=== PATIENT | female | born 1985 | race Caucasian/White ===

== ENCOUNTER 2020-09-18 21:59 | Emergency (ER) | payer SELFPAY ==
--- OUTSIDE RECORDS SUMMARY | 2020-09-18 22:00 | XMS REPORT | Continuity of Care Document ---
:1985 Author Organization [facility] t Address [address] [place] [address] Care Team Providers Name Role Phone Doctor Unassigned, Name Attending Clinician Unavailable Problems This patient has no known problems. Allergies, Adverse Reactions, Alerts This patient has no known allergies or adverse reactions. Medications This patient has no known medications. Procedures This patient has no known procedures. Encounters Start End Encounter Admission Attending Care Care Encounter Source Date/Time Date/Time Type Type Clinicians Facility Department ID 2019-02-02 2019-02-02 Orders Doctor CHARLES [id number] 00:00:00 00:00:00 Only UnassignedJANE [id number] [employer] [facility] [id number] Results This patient has no known results.
[2020-09-19 00:30] LABS: SARS-COV-2 RT PCR POSITIVE (NEGATIVE)
--- NOTE | 2020-09-19 02:19 | EDPHYS ---
Physician Documentation [facility] Name: Gill Batista Age: 35 yrs Sex: Female : 1985 Arrival Date: 09/18/2020 Time: 22:00 Bed 5 Private MD: SENIA Physician Terrell Pyle HPI: 09/19 02:11 This 35 yrs old Female presents to ER via Ambulatory with complaints of juan pablo Diarrhea, Breathing Difficulty. 02:11 The patient presents to the emergency department with diarrhea. Onset: The juan pablo symptoms/episode began/occurred 3 day(s) ago. Possible causes: unknown. The symptoms are aggravated by nothing. The symptoms are alleviated by nothing. Associated signs and symptoms: Pertinent positives: diarrhea, fever, cough and congestion. Severity of symptoms: At their worst the symptoms were mild in the emergency department the symptoms are unchanged. The patient has not experienced similar symptoms in the past. 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 - Social history:: Smoking status: Patient denies any tobacco usage or history of. ROS: 09/19 02:12 Constitutional: Negative for fever, chills, and weight loss, Eyes: Negative for injury, juan pablo pain, redness, and discharge, ENT: Negative for injury, pain, and discharge, Neck: Negative for injury, pain, and swelling, Cardiovascular: Negative for chest pain, palpitations, and edema, Abdomen/GI: Negative for abdominal pain, nausea, vomiting, diarrhea, and constipation, Back: Negative for injury and pain, : Negative for injury, bleeding, discharge, and swelling, MS/Extremity: Negative for injury and deformity, Skin: Negative for injury, rash, and discoloration, Neuro: Negative for headache, weakness, numbness, tingling, and seizure, Psych: Negative for depression, anxiety, suicide ideation, homicidal ideation, and hallucinations, Allergy/Immunology: Negative for hives, rash, and allergies, Endocrine: Negative for neck swelling, polydipsia, polyuria, polyphagia, and marked weight changes, Hematologic/Lymphatic: Negative for swollen nodes, abnormal bleeding, and unusual bruising. Respiratory: Positive for cough, shortness of breath, on exertion. MS/extremity: Negative for acute changes. Exam: 02:12 Constitutional: This is a well developed, well nourished patient who is awake, alert, juan pablo and in no acute distress. Head/Face: Normocephalic, atraumatic. Eyes: Pupils equal round and reactive to light, extra-ocular motions intact. Lids and lashes normal. Conjunctiva and sclera are non-icteric and not injected. Cornea within normal limits. Periorbital areas with no swelling, redness, or edema. ENT: Nares patent. No nasal discharge, no septal abnormalities noted. Tympanic membranes are normal and external auditory canals are clear. Oropharynx with no redness, swelling, or masses, exudates, or evidence of obstruction, uvula midline. Mucous membranes moist. Neck: Trachea midline, no thyromegaly or masses palpated, and no cervical lymphadenopathy. Supple, full range of motion without nuchal rigidity, or vertebral point tenderness. No Meningismus. Chest/axilla: Normal chest wall appearance and motion. Nontender with no deformity. No lesions are appreciated. Cardiovascular: Regular rate and rhythm with a normal S1 and S2. No gallops, murmurs, or rubs. Normal PMI, no JVD. No pulse deficits. Abdomen/GI: Soft, non-tender, with normal bowel sounds. No distension or tympany. No guarding or rebound. No evidence of tenderness throughout. Back: No spinal tenderness. No costovertebral tenderness. Full range of motion. Female : Normal external genitalia. Skin: Warm, dry with normal turgor. Normal color with no rashes, no lesions, and no evidence of cellulitis. MS/ Extremity: Pulses equal, no cyanosis. Neurovascular intact. Full, normal range of motion. Neuro: Awake and alert, GCS 15, oriented to person, place, time, and situation. Cranial nerves II-XII grossly intact. Motor strength 5/5 in all extremities. Sensory grossly intact. Cerebellar exam normal. Normal gait. 02:12 Respiratory: mild respiratory distress is noted, Respirations: normal, Breath sounds: are clear throughout, Respiratory rate: 20 Vital Signs: 09/18 22:55 BP 106 / 71; Pulse 81; Resp 20; Temp 97.9(O); Pulse Ox 99% on R/A; Weight 95.25 kg (R); lp1 Height 5 ft. 2 in. (157.48 cm); 22:55 Body Mass Index 38.41 (95.25 kg, 157.48 cm) lp1 MDM: 09/19 02:07 Patient medically screened. juan pablo 02:14 Differential diagnosis: Nonspecific abd pain, gastritis. Differential Diagnosis: juan pablo Bronchitis Influenza Upper Respiratory Infection Allergic Rhinitis Asthma Exacerbation Pneumonia. Data reviewed: vital signs, nurses notes, lab test result(s), radiologic studies, plain films. Data interpreted: network control operator: rate is 81 beats/min, rhythm is regular, Pulse oximetry: on room air is 99 %. Test interpretation: by ED physician or midlevel provider: ECG, plain radiologic studies. Counseling: I had a detailed discussion with the patient and/or guardian regarding: the historical points, exam findings, and any diagnostic results supporting the discharge/admit diagnosis, lab results, radiology results, the need for outpatient follow up, for definitive care, a family practitioner, a handy worker. 09/18 22:59 Order name: Strep; Complete Time: 02:07 lp1 09/19 00:04 Order name: Throat Culture EDCT 09/19 00:30 Order name: COVID-19/FLU A+B; Complete Time: 02:07 [facility] 09/19 00:30 Order name: XRAY CXR (1 view) lp1 Administered Medications: 02:50 Drug: Decadron 10 mg Route: IM; Site: left deltoid; jb4 03:20 Follow up: Response: No adverse reaction jb4 02:50 Drug: Aspirin Chewable Tablet 324 mg Route: PO; jb4 03:20 Follow up: Response: No adverse reaction jb4 02:50 Drug: Pepcid 40 mg Route: PO; jb4 03:20 Follow up: Response: No adverse reaction jb4 02:50 Drug: Zithromax 500 mg Route: PO; jb4 03:20 Follow up: Response: No adverse reaction jb4 02:50 Drug: Albuterol HFA Inhaler 4 puffs Route: Inhalation; jb4 03:20 Follow up: Response: No adverse reaction jb4 Disposition: 09/19/20 02:18 Discharged to Home. Impression: Cough, SARS-associated coronavirus as the cause of diseases classified elsewhere - covid 19, Diarrhea, unspecified. - Condition is Stable. - Discharge Instructions: Diarrhea, Adult, Cool Mist Vaporizer, Diarrhea, Adult, Uqhl-yz-[id number], Cough, Adult, Vrur-wk-Sgmv, Aspirin and Your Heart, Cough, Adult, COVID-19. - Prescriptions for ivermectin 3 mg Oral tablet - take 4 tablet by ORAL route once daily x1 dose day 1 and day #3; 8 tablet. Pepcid 20 mg Oral Tablet - take 1 tablet by ORAL route every 12 hours for 10 days; 20 tablet. Albuterol Sulfate 90 mcg/actuation Inhalation - inhale 2 puff by INHALATION route every 4-6 hours; 1 Inhaler. Zithromax 500 mg Oral Tablet - take 1 tablet by ORAL route once daily for 4 days; 4 tablet. dexamethasone 2 mg Oral tablet - take 1 tablet by ORAL route 3 times per day; 15 tablet. - Medication Reconciliation Form, Thank You Letter, Antibiotic Education, Prescription Opioid Use form. - Follow up: Terrell Pyle MD; When: 2 - 3 days; Reason: Recheck today's complaints, Continuance of care, Re-evaluation by your physician. Follow up: Private Physician; When: 2 - 3 days; Reason: Recheck today's complaints, Continuance of care, Re-evaluation by your physician. Follow up: Pato Lee MD; When: 2 - 3 days; Reason: Recheck today's complaints, Re-evaluation by your physician. - Problem is new. - Symptoms have improved. Signatures: Dispatcher [employer] [facility] Terrell Pyle MD MD cha Pena, Laura, RN RN lp1 Dread Sofia RN RN jb4 Corrections: (The following items were deleted from the chart) 09/18 23:29 23:00 Influenza Screen (A ordered. [facility] 23: 23:00 Influenza Screen (A \T\ B)+BA.LAB.BRZ ordered. [facility] 09/19 03:30 02:18 09/19/2020 02:18 Discharged to Home. Impression: Cough; SARS-associated lp1 coronavirus as the cause of diseases classified elsewhere - covid 19; Diarrhea, unspecified. Condition is Stable. Forms are Medication Reconciliation Form, Thank You Letter, Antibiotic Education, Prescription Opioid Use. Follow up: Private Physician; When: 2 - 3 days; Reason: Recheck today's complaints, Continuance of care, Re-evaluation by your physician. Follow up: Pato Lee; When: 2 - 3 days; Reason: Recheck today's complaints, Re-evaluation by your physician. Problem is new. Symptoms have improved. juan pablo
--- NOTE | 2020-09-19 02:19 | ER ---
Nurse's Notes [facility] Name: Gill Batista Age: 35 yrs Sex: Female : 1985 Arrival Date: 09/18/2020 Time: 22:00 Bed 5 Private MD: Diagnosis: Cough;SARS-associated coronavirus as the cause of diseases classified elsewhere-covid 19;Diarrhea, unspecified Presentation: 09/18 22:51 Chief complaint: Patient states: for 5 days, irritation in throat, cough, fever; lp1 Reports feeling short of breath; Reports friend tested COVID positive this week that she has been in contact with; reports diarrhea x 1 week. Coronavirus screen: cough unrelated to allergies, fever, muscle pain, runny nose, sore throat, Client presents with at least one sign or symptom that may indicate coronavirus-19. Standard/surgical mask placed on the client. Ebola Screen: No symptoms or risks identified at this time. Risk Assessment: Do you want to hurt yourself or someone else? Patient reports no desire to harm self or others. Onset of symptoms was September 13, 2020. 22:51 Method Of Arrival: Ambulatory lp1 22:51 Acuity: KAIA 3 lp1 22:55 Initial Sepsis Screen: Does the patient meet any 2 criteria? No. Patient's initial lp1 sepsis screen is negative. Does the patient have a suspected source of infection? No. Patient's initial sepsis screen is negative. Triage Assessment: 22:56 General: Appears in no apparent distress. Behavior is calm, cooperative. EENT: Reports lp1 nasal congestion. EENT: Reports pain when swallowing. Respiratory: Reports cough that is productive. GI: Reports diarrhea. Derm: Skin is pink, warm \T\ dry. 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 - Social history:: Smoking status: Patient denies any tobacco usage or history of. Screenin/31 02:50 Abuse screen: Denies threats or abuse. Nutritional screening: No deficits noted. jb4 Tuberculosis screening: No symptoms or risk factors identified. Fall Risk None identified. Assessment: 02:52 General: Appears in no apparent distress. comfortable, Behavior is calm, cooperative, jb4 appropriate for age. Pain: Denies pain. Neuro: Level of Consciousness is awake, alert, obeys commands, Oriented to person, place, time, situation. Cardiovascular: Patient's skin is warm and dry. Respiratory: Airway is patent Respiratory effort is even, unlabored, Respiratory pattern is regular, symmetrical. GI: No signs and/or symptoms were reported involving the gastrointestinal system. : No signs and/or symptoms were reported regarding the genitourinary system. EENT: No signs and/or symptoms were reported regarding the EENT system. Derm: Skin is intact, Skin is pink, warm \T\ dry. Musculoskeletal: Circulation, motion, and sensation intact. Range of motion: intact in all extremities. Vital Signs: 09/18 22:55 BP 106 / 71; Pulse 81; Resp 20; Temp 97.9(O); Pulse Ox 99% on R/A; Weight 95.25 kg (R); lp1 Height 5 ft. 2 in. (157.48 cm); 22:55 Body Mass Index 38.41 (95.25 kg, 157.48 cm) lp1 ED Course: 22:00 Patient arrived in ED. cl3 22:54 Triage completed. lp1 22:54 Arm band placed on right wrist. lp1 23:19 COVID swab sent to lab. jp3 09/19 01:21 XRAY CXR (1 view) In Process Unspecified. EDMS 02:07 Terrell Pyle MD is Attending Physician. juan pablo 02:13 Dread Sofia, ANNE is Primary Nurse. jb4 02:16 Terrell Pyle MD is Referral Physician. juan pablo 02:18 Referral Physician role handed off by Terrell Pyle MD juan pablo 02:18 Pato Lee MD is Referral Physician. juan pablo 02:50 Patient has correct armband on for positive identification. Bed in low position. Call jb4 light in reach. Side rails up X 1. 02:56 No provider procedures requiring assistance completed. Patient did not have IV access jb4 during this emergency room visit. Administered Medications: 02:50 Drug: Decadron 10 mg Route: IM; Site: left deltoid; jb4 03:20 Follow up: Response: No adverse reaction jb4 02:50 Drug: Aspirin Chewable Tablet 324 mg Route: PO; jb4 03:20 Follow up: Response: No adverse reaction jb4 02:50 Drug: Pepcid 40 mg Route: PO; jb4 03:20 Follow up: Response: No adverse reaction jb4 02:50 Drug: Zithromax 500 mg Route: PO; jb4 03:20 Follow up: Response: No adverse reaction jb4 02:50 Drug: Albuterol HFA Inhaler 4 puffs Route: Inhalation; jb4 03:20 Follow up: Response: No adverse reaction jb4 Outcome: 02:18 Discharge ordered by . juan pablo 03:30 Discharged to home ambulatory. lp1 03:30 Condition: good 03:30 Discharge instructions given to patient, Instructed on discharge instructions, follow up and referral plans. medication usage, Demonstrated understanding of instructions, follow-up care, medications, Prescriptions given X x5 03:30 Patient left the ED. lp1 Signatures: Dispatcher [employer] EDMS Terrell Pyle MD MD cha Pena, Laura, RN RN lp1 Dread Sofia RN RN jb4 Lizandro Paris jp3 Jayna Sheriff cl3 Corrections: (The following items were deleted from the chart) 09/18 22:57 22:51 Chief complaint: Patient states: for 5 days, irritation in throat, cough, fever; lp1 Reports feeling short of breath; Reports friend tested COVID positive this week that she has been in contact with lp1
[2020-09-19] MEDS ORDERED: ASPIRIN 81 MG CHEWABLE TABLET ONE (02:58)
[2020-09-19] MEDS ORDERED: AZITHROMYCIN 250 MG TAB ONE (02:58)
[2020-09-19] MEDS ORDERED: dexAMETHasone 10 MG/ML VIAL ONE (02:58)
[2020-09-19] MEDS ORDERED: ALBUTEROL INHALER 60 PUFF/8 GM IH ONE (02:59)
[2020-09-19] MEDS ORDERED: FAMOTIDINE 20 MG TAB ONE (02:59)
[2020-09-19 03:39] VITALS: BP 106/71; TEMP 97.9; O2SAT 99
--- NOTE | 2020-09-19 08:45 | RAD REPORT ---
EXAM DESCRIPTION: Hannah Single View09/19/2020 1:21 am CLINICAL HISTORY: Shortness of breath COMPARISON: none FINDINGS: The lungs appear clear of acute infiltrate. The heart is normal size IMPRESSION: No acute abnormalities displayed
== END 2020-09-19 03:30 | disposition home or self-care (01) ==
LOC: ER 21:59
DX: U07.1 COVID-19 (principal); R05 Cough; R19.7 Diarrhea, unspecified
CPT/HCPCS: 0240U; 71045; 87070; 87081; 96372; 99284; J1100

== ENCOUNTER 2023-03-06 11:20 | Emergency (ER) | payer SELFPAY ==
--- OUTSIDE RECORDS SUMMARY | 2023-03-06 11:27 | XMS REPORT | Continuity of Care Document ---
:1985 Author Organization [facility] t Address [address] [place] [address] Care Team Providers Name Role Phone BRENDON VAZQUEZ Attending Clinician Unavailable LEATHA BATISTA Attending Clinician Unavailable Doctor Unassigned, [place] Attending Clinician Unavailable Payers Payer Name Policy Type Policy Number Effective Date Expiration Date [facility] [id number] 2016 [facility] MEDICAID 00:00:00 Problems Condition Condition Condition Status Onset Resolution Last Treating Co mments Source Name Details Category Date Date Treatment Clinician Date Disease Active 2019- U nivers care and care and 02-24 ity of [place] 00 Medical immediatel immediatel Br anch y after y after delivery delivery Complicati Complicati Disease Active 2019- U nivers on of on of 02-05 ity of [place] 00 [facility] Postoperat Postoperat Disease Active 2019- U nivers coy ileus coy ileus - ity of 00:00: [place] 00 Medical Branch Tubal Tubal Disease Active 2019 Overview: Univer s ligation ligation 01-29 Consents ity of evaluation evaluation [place]:00[place] 00 11/19/18 Medical Branch Obesity Obesity Disease Active Univers affecting affecting - ity of , , [place] antepartum antepartum 00 [place] dical Branch Allergies, Adverse Reactions, Alerts Allergy Allergy Status Severity Reaction(s) Onset Inactive Treating Comm ents Source Name Type Date Date Clinician NO KNOWN Drug Active Univers ALLERGIE Class ity of S [facility] Social History Social Habit Start Date Stop Date Quantity Comments Source Alcohol intake [facility] ASSERTION [facility] Sex Assigned At [facility] [place] [facility] History SDOH 2019-02-01 2019-02-01 12 [facility] [place] Education 00:00:00 00:00:00 Medical Branch Smoking Status Start Date Stop Date Source Never smoker [facility] Branch Medications Ordered Filled Start Stop Current Ordering Indication Dosage Frequency Signature Comments Components Source Medication Medication Date Date Medication? Clinician (SIG) Name Name Yes [id number] 1{tbl} Take 1 U nivers vitamin 6-17 tablet by ity of w/FA tablet 00:00: mouth [place] 00 daily. Medical Branch docusate Yes [id number] 240mg Take 1 Un indra calcium 240 6-17 capsule by it y of mg capsule 00:00: mouth [place] 00 daily as Medical needed for Branch Constipati on. ferrous Yes [id number] 325mg Take 1 Uni vers sulfate 325 6-17 tablet by ity of mg (65 mg 00:00: mouth 2 [place] iron) 00 (two) Medical tablet times Branch daily. ibuprofen Yes [id number] 600mg Take 1 U nivers 600 mg 6-17 tablet by ity of tablet 00:00: mouth [place] 00 every 6 Medical (six) Branch hours as needed for Pain (scale 1-3) or Pain (scale 4-6) (Pain). Take with food or milk. Immunizations Ordered Filled Immunization Date Status Comments Sourc e Immunization Name Name Tdap 2018-11-19 Completed [facility] 00:00:00 [facility] Influenza Virus 2018-06-11 Completed Universit y of Vaccine Quad .5 mL 00:00:00 [facility] IM 6+ MO Branch Influenza Virus 2015-10-18 Completed Universit y of Vaccine Quad IM 3+ 00:00:00 [facility] YRS Branch Influenza Virus 2013-04-29 Completed Universit y of Vaccine 00:00:00 [facility] Varicella 2012-09-30 Completed [facility] (varivax)(chicken 00:00:00 [place] M edical pox) Branch Rubella 2012-08-21 Completed University 00:00:00 [facility] Tdap 2012-08-21 Completed [facility] 00:00:00 [facility] Procedures Procedure Date / Time Performing Clinician Source Performed STERILIZATION CONSENT 2019-02-02 05:01:00 Doctor Krissyssdevon, Camille [facility] FORM Name [facility] Encounters Start End Encounter Admission Attending Care Care Encounter Source Date/Time Date/Time Type Type Clinicians Facility Department ID 2022-12-18 2022-12-18 Outpatient [facility] [id number] Jaret 14:48:19 14:48:19 0501 F Jens 2020-12-21 2020-12-21 [id number] Univers 11:10:00 11:10:00 BRENDON [facility] 2020-12-18 2020-12-18 Outpatient [facility] [id number] Univers 09:30:00 09:30:00 [facility] 2020-11-27 2020-11-27 Outpatient Indra BATISTA [facility] [id number] Univers 09:35:00 09:35:00 LEATHA [facility] 2019-02-02 2019-02-02 Orders Doctor CHARLES [id number] Univers 00:00:00 00:00:00 Only Unassigned, JANE [id number] ity of [place] [facility] [id number] [place] as [phone] [place] [address] Branch 2019-02-02 2019-02-02 Orders Doctor CHARLES [id number] 00:00:00 00:00:00 Only UnassignedJANE [id number] [place] [facility] [id number] Results This patient has no known results.
[2023-03-06] MEDS ORDERED: predniSONE 20 MG TAB ONE (11:43)
[2023-03-06] MEDS ORDERED: IBUPROFEN 400 MG TAB ONE (11:43)
--- NOTE | 2023-03-06 12:25 | RAD REPORT ---
EXAM DESCRIPTION: RAD - C Spine Ap/Lat - 03/06/2023 12:10 pm CLINICAL HISTORY: Neck pain FINDINGS: No fracture or dislocation is seen. No significant bone or joint abnormality noted
--- NOTE | 2023-03-06 12:25 | RAD REPORT ---
EXAM DESCRIPTION: RAD - Shoulder Right 2 View - 03/06/2023 12:11 pm CLINICAL HISTORY: Right shoulder pain FINDINGS: No fracture or dislocation is seen. No significant bone or joint abnormality noted
--- NOTE | 2023-03-06 14:12 | RAD REPORT ---
EXAM DESCRIPTION: US - UPPER EXTREMITY VENOUS UNILATE - 03/06/2023 1:59 pm CLINICAL HISTORY: right arm pain;Pain Right arm pain and swelling COMPARISON: <Comparisons> FINDINGS: Right upper extremity venous system was interrogated with Doppler technique. No flow is vi sualized in the subclavian vein. This is suspicious for thrombus. IMPRESSION: Findings suspicious for thrombus in the right subclavian vein.
--- NOTE | 2023-03-06 15:26 | EDPHYS ---
Physician Documentation [facility] Name: Gill Batista Age: 37 yrs Sex: Female : 1985 Arrival Date: 03/06/2023 Time: 11:20 Bed 11 Private MD: ED Physician Miguelangel Prater HPI: 03/06 12:46 This 37 yrs old Female presents to ER via Ambulatory with complaints of rn Shoulder Pain - right, Arm Pain - right. 12:46 The patient or guardian complains of pain. right shoulder. Onset: The symptoms/episode rn began/occurred 1 week(s) ago. Modifying factors: the symptoms are alleviated by nothing. The symptoms are aggravated by lifting weight, movement, rotation of arm. Severity of symptoms: At their worst the symptoms were moderate, in the emergency department the symptoms are unchanged. The patient has not experienced similar symptoms in the past. The patient has not recently seen a physician. Pt reports right shoulder pain, worse with rotation and lifting, works with arms a lot and lifts heavy objects. No weakness. No fever. No hx of dvt/PE. . 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 - Social history:: Smoking status: Patient denies any tobacco usage or history of. - Family history:: not pertinent. - Hospitalizations: : No recent hospitalization is reported. ROS: 13:13 Constitutional: Negative for fever, chills, and weight loss, Neck: Negative for injury, rn pain, and swelling, Cardiovascular: Negative for chest pain, palpitations, and edema, Respiratory: Negative for shortness of breath, cough, wheezing, and pleuritic chest pain, Abdomen/GI: Negative for abdominal pain, nausea, vomiting, diarrhea, and constipation, MS/Extremity: Negative for injury or deformity Skin: Negative for injury, rash, and discoloration, Neuro: Negative for headache, weakness, and seizure Exam: 13:13 Constitutional: This is a well developed, well nourished patient who is awake, alert, rn and in no acute distress. Neck: Trachea midline, no thyromegaly or masses palpated, and no cervical lymphadenopathy. Supple, full range of motion without nuchal rigidity, or vertebral point tenderness. No Meningismus. Cardiovascular: Regular rate and rhythm. No pulse deficits. MS/ Extremity: Pulses equal, no cyanosis. Neurovascular intact. Painful ROM right shoulder especially with reacing behind her and with rotation at shoulder joint. No swelling. no cyanosis. Neuro: Awake and alert, GCS 15, oriented to person, place, time, and situation. Motor strength 5/5 in all extremities. Sensory grossly intact. Cerebellar exam normal. Vital Signs: 11:26 BP 106 / 79; Pulse 63; Resp 18 S; Temp 97.5(TE); Pulse Ox 100% on R/A; Weight 90.72 kg aa5 (R); Height 5 ft. 2 in. (R); 13:17 BP 112 / 74; Pulse 68; Resp 16; Pulse Ox 99% ; ko1 16:52 BP 109 / 71; Pulse 84; Resp 17 S; Pulse Ox 99% on R/A; kc6 11:26 Body Mass Index 36.58 (90.72 kg, 157.48 cm) aa5 MDM: 11:24 Patient medically screened. rn 15:25 Differential diagnosis: tendonitis, DVT, arterial occlusion. Data reviewed: vital rn signs, nurses notes, lab test result(s), radiologic studies, ultrasound, and as a result, I will admit patient. Consideration of Admission/Observation Patient was admitted/placed on observation. Escalation of care including admission/observation considered. Counseling: I had a detailed discussion with the patient and/or guardian regarding: the historical points, exam findings, and any diagnostic results supporting the discharge/admit diagnosis, lab results, radiology results, the need for further work-up and treatment in the hospital, the need to transfer to another facility, for higher level of care, [facility] does not immediately have the required specialist. 03/06 15:38 Order name: CBC with Diff; Complete Time: 16: rn 03/06 15:38 Order name: Basic Metabolic Panel; Complete Time: 16: rn 03/06 15:38 Order name: Protime (+inr); Complete Time: 16: rn 03/06 15:38 Order name: Ptt, Activated; Complete Time: 16: rn 03/06 15:38 Order name: Test, Urine; Complete Time: 16: rn 03/06 11:29 Order name: XRAY C Spine Ap/lat; Complete Time: 12:26 rn 03/06 11:29 Order name: XRAY Shoulder RIGHT 2 view; Complete Time: 12:26 rn 03/06 13:32 Order name: UPPER EXTREMITY VENOUS UNILATE; Complete Time: 15:09 EDMS 03/06 13:35 Order name: Upper Ext Artery Uni Luis Alfredo; Complete Time: 15:56 EDMS 03/06 15:38 Order name: IV Start; Complete Time: 15:50 rn Administered Medications: 11:36 Drug: predniSONE PO 60 mg Route: PO; aa5 15:55 Follow up: Response: No adverse reaction kc6 11:36 Drug: Ibuprofen PO 800 mg Route: PO; aa5 15:55 Follow up: Response: No adverse reaction; Pain is decreased kc6 16:15 Drug: Heparin (DVT/PE- Bolus per protocol) - HEParin IVP 80 units/kg {Co-Signature: iw kc6 (Chelsea Quiroz RN).} Route: IVP; Site: right antecubital; 16:52 Follow up: Response: No adverse reaction kc6 16:15 Drug: Heparin (DVT/PE Drip) - ([place] [address] units, D5W IV 500 ml) 18 units/kg/hr kc6 {Co-Signature: iw (Chelsea Quiroz RN).} Route: IV; Rate: calculated rate; Site: right antecubital; 16:52 Follow up: Response: No adverse reaction; IV Status: Infusion continued upon transfer kc6 Disposition Summary: 03/06/23 15:26 Transfer Ordered Transfer Location: 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 EDCT EDMS 13:35 12:48 Lower Extremity Arterial Bilat+US.RAD.BRZ ordered. EDMS EDMS 16:53 15:26 Dr. conde kc6
--- NOTE | 2023-03-06 15:26 | ER ---
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 Pt aa5 states "I work and we lift things". Coronavirus screen: At this time, the client does not indicate any symptoms associated with coronavirus-19. Ebola Screen: Patient denies travel to an Ebola-affected area in the 21 days before illness onset. Initial Sepsis Screen: Does the patient meet any 2 criteria? No. Patient's initial sepsis screen is negative. Does the patient have a suspected source of infection? No. Patient's initial sepsis screen is negative. Risk Assessment: Do you want to hurt yourself or someone else? Patient reports no desire to harm self or others. Onset of symptoms was February 2023. 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 - Social history:: Smoking status: Patient denies any tobacco usage or history of. - Family history:: not pertinent. - Hospitalizations: : No recent hospitalization is reported. Screenin:46 [facility] ED Fall Risk Assessment (Adult) History of falling in the last 3 months, ko1 including since admission No falls in past 3 months (0 pts) Confusion or Disorientation No (0 pts) Intoxicated or Sedated No (0 pts) Impaired Gait No (0 pts) Mobility Assist Device Used No (0 pt) Altered Elimination No (0 pt) Score/Fall Risk Level 0 - 2 = Low Risk Oriented to surroundings, Maintained a safe environment, Educated pt \\T\\ family on fall prevention, incl call for assistance when getting out of bed, Assessed \\T\\ reinforced patient's understanding of fall precautions, Provided non-skid footwear, Hourly rounding (assess needs \\T\\ fall precautionary measures) done, Used ambulatory aids as needed (educated on \\T\\ assisted with), Used gait belt as appropriate. Abuse screen: Denies threats or abuse. Denies injuries from another. Nutritional screening: No deficits noted. Tuberculosis screening: No symptoms or risk factors identified. Assessment: 12:46 General: Appears in no apparent distress. uncomfortable, Behavior is calm, cooperative, ko1 appropriate for age. Pain: Complains of pain in anterior aspect of right shoulder and posterior aspect of right shoulder. Neuro: No deficits noted. Cardiovascular: No deficits noted. Respiratory: No deficits noted. GI: No deficits noted. : No deficits noted. EENT: No deficits noted. Derm: No deficits noted. Musculoskeletal: Reports pain in right shoulder. 15:15 General: Appears in no apparent distress. comfortable, Behavior is calm, cooperative, kc6 appropriate for age. Pain: Complains of pain in right arm. Neuro: Level of Consciousness is awake, alert, obeys commands, Oriented to person, place, time, situation, Appropriate for age. Cardiovascular: Capillary refill < 3 seconds. Respiratory: Airway is patent Trachea midline Respiratory effort is even, unlabored, Respiratory pattern is regular, symmetrical. GI: No signs and/or symptoms were reported involving the gastrointestinal system. : No signs and/or symptoms were reported regarding the genitourinary system. EENT: No signs and/or symptoms were reported regarding the EENT system. Derm: No signs and/or symptoms reported regarding the dermatologic system. Skin is intact, is healthy with good turgor, Skin is pink, warm \\T\\ dry. Musculoskeletal: Circulation, motion, and sensation intact. Capillary refill < 3 seconds, Range of motion: intact in all extremities. 16:00 Reassessment: Patient appears in no apparent distress at this time. No changes from kc6 previously documented assessment. Patient and/or family updated on plan of care and expected duration. Pain level reassessed. Patient is alert, oriented x 3, equal unlabored respirations, skin warm/dry/pink. 16:22 Reassessment: attempted to call report to nurse Anderson at [facility]. stated she is kc6 at lunch right now and would like me to call back in 15min. Vital Signs: 11:26 BP 106 / 79; Pulse 63; Resp 18 S; Temp 97.5(TE); Pulse Ox 100% on R/A; Weight 90.72 kg aa5 (R); Height 5 ft. 2 in. (R); 13:17 BP 112 / 74; Pulse 68; Resp 16; Pulse Ox 99% ; ko1 16:52 BP 109 / 71; Pulse 84; Resp 17 S; Pulse Ox 99% on R/A; kc6 11:26 Body Mass Index 36.58 (90.72 kg, 157.48 cm) aa5 ED Course: 11:24 Patient arrived in ED. im 11:24 Miguelangel Prater MD is Attending Physician. rn 11:26 Arm band placed on. aa5 11:27 Triage completed. aa5 12:11 XRAY C Spine Ap/lat In Process Unspecified. EDMS 12:11 XRAY Shoulder RIGHT 2 view In Process Unspecified. EDMS 12:35 Aurea Joel, RN is Primary Nurse. ko1 12:46 Patient has correct armband on for positive identification. Bed in low position. Call ko1 light in reach. Provided Education on: NA. 12:46 No provider procedures requiring assistance completed. ko1 12:48 Patient did not have IV access during this emergency room visit. ko1 14:02 UPPER EXTREMITY VENOUS UNILATE In Process Unspecified. EDMS 14:02 Upper Ext Artery Uni Luis Alfredo In Process Unspecified. EDMS 15:15 Report received from Aurea Joel, ANNE. kc6 15:30 called transfer center spoke with mary lou. kj1 15:50 Test, Urine Sent. kc6 15:50 Protime (+inr) Sent. kc6 15:50 Ptt, Activated Sent. kc6 15:50 Basic Metabolic Panel Sent. kc6 15:50 CBC with Diff Sent. kc6 15:50 Inserted saline lock: 20 gauge in right antecubital area, using aseptic technique. kc6 Blood collected. Administered Medications: 11:36 Drug: predniSONE PO 60 mg Route: PO; aa5 15:55 Follow up: Response: No adverse reaction kc6 11:36 Drug: Ibuprofen PO 800 mg Route: PO; aa5 15:55 Follow up: Response: No adverse reaction; Pain is decreased kc6 16:15 Drug: Heparin (DVT/PE- Bolus per protocol) - HEParin IVP 80 units/kg {Co-Signature: iw kc6 (Chelsea Quiroz RN).} Route: IVP; Site: right antecubital; 16:52 Follow up: Response: No adverse reaction kc6 16:15 Drug: Heparin (DVT/PE Drip) - ([place] [address] units, D5W IV 500 ml) 18 units/kg/hr kc6 {Co-Signature: iw (Chelsea Quiroz RN).} Route: IV; Rate: calculated rate; Site: right antecubital; 16:52 Follow up: Response: No adverse reaction; IV Status: Infusion continued upon transfer kc6 Medication: 12:46 VIS not applicable for this client. ko1 Outcome: 15:26 ER care complete, transfer ordered by . rn 16:51 Transferred by [facility] to [facility], Transfer form completed. kc6 Note: report called to ANNE Anderson 16:51 Condition: stable 16:51 Instructed on the need for transfer. 16:53 Patient left the ED. kc6 Signatures: Dispatcher [employer] EDMS Chelsea Quiroz, ANNE RODRÍGUEZ iw Miguelangel Prater MD MD rn Calderon, Audri, RN RN jarret5 Katt Up Kaitlyn, RN RN kc6 Aurea Joel RN RN ko1 Porsha Hargrove Irene RN iw Corrections: (The following items were deleted from the chart) 11:30 11:26 Pulse 63bpm; Resp 18bpm; Spontaneous; Pulse Ox 100% RA; Temp 97.5F Temporal; aa5 aa5 16:00 15:15 Reassessment: Patient appears in no apparent distress at this time. Patient kc6 and/or family updated on plan of care and expected duration. Pain level reassessed. Patient is alert, oriented x 3, equal unlabored respirations, skin warm/dry/pink. kc6
--- NOTE | 2023-03-06 15:55 | RAD REPORT ---
EXAM DESCRIPTION: US - Upper Ext Artery Uni Luis Alfredo - 03/06/2023 1:59 pm CLINICAL HISTORY: right arm pain Arm pain COMPARISON: <Comparisons> FINDINGS: Right upper extremity arterial Doppler was performed. No worrisome flow abnormality seen. No occlusion or stenosis. IMPRESSION: Negative study.
[2023-03-06 16:01] LABS: Specific Gravity 1.012 (1.005-1.030)
[2023-03-06 16:05] LABS: Absolute Lymphocytes (CBC) 1.7 K/uL (0.7-4.9); Hematocrit 43.4 % (36.0-45.0); Lymphocytes % 16.4 % (15.3-44.8); MCV 88.9 fL (80-100); MPV 9.1 fL (7.6-11.3); RBC Red Blood Cell Count 4.88 M/uL (3.86-4.86)
[2023-03-06] MEDS ORDERED: HEPARIN 5000 UNIT/ML 1 ML VIAL ONE ×2 (16:07→16:19)
[2023-03-06] MEDS ORDERED: HEPARIN/D5W 25,000 UNIT/500 ML BAG IV ONE (16:07)
[2023-03-06 16:08] LABS: Protime INR 1.04
[2023-03-06 16:15] LABS: Potassium 3.8 mEq/L (3.5-5.1)
[2023-03-06 17:08] VITALS: TEMP 97.5
[2023-03-06 17:18] VITALS: O2SAT 99
[2023-03-06 17:19] VITALS: BP 109/71
== END 2023-03-06 16:53 | disposition short-term general hospital (02) ==
LOC: ER 11:20
DX: I82.B11 Acute embolism and thrombosis of right subclavian vein (principal)
CPT/HCPCS: 36415; 72040; 80048; 81025; 85025; 85610; 85730; 93931; 93971; 96365; 99285; J1644; J7512

== ENCOUNTER 2024-09-01 10:27 | Emergency (ER) | payer SELFPAY ==
[2024-09-01] MEDS ORDERED: IBUPROFEN 200 MG TAB PO ONE (11:17)
[2024-09-01 11:26] LABS: SARS-CoV-2 Antigen CONTROL BLUE LINE VIS/BG OK; SARS-CoV-2 Antigen Rapid Res Negative (Negative)
--- NOTE | 2024-09-01 12:18 | ER ---
Nurse's Notes [facility] Name: Gill Batista Age: 39 yrs Sex: Female : 1985 Arrival Date: 09/01/2024 Time: 10:27 Bed 11 Private MD: Diagnosis: Cough;Myalgia;Pain in throat Presentation: 09/01 10:38 Chief complaint: Patient states: has pain all over, fever, cough since Sunday. iw Coronavirus screen: Client presents with at least one sign or symptom that may indicate coronavirus-19. Ebola Screen: No symptoms or risks identified at this time. Initial Sepsis Screen: Does the patient meet any 2 criteria? HR > 90 bpm. Does the patient have a suspected source of infection?. Risk Assessment: Do you want to hurt yourself or someone else?. Onset of symptoms was August 30, 2024. 10:38 Method Of Arrival: Ambulatory iw 10:38 Acuity: KAIA 4 iw Triage Assessment: 10:40 General: Appears in no apparent distress. Behavior is calm, cooperative. iw Historical: - Allergies: 10:40 No Known Allergies; iw - Home Meds: 10:40 None [Active]; iw - PMHx: 10:40 None; iw - PSHx: 10:40 None; iw - Immunization history:: Adult Immunizations not up to date. - Infectious Disease History:: Denies. - Social history:: Smoking status: Patient denies any tobacco usage or history of. Screenin:30 [facility] ED Fall Risk Assessment (Adult) History of falling in the last 3 months, iw including since admission No falls in past 3 months (0 pts) Confusion or Disorientation No (0 pts) Intoxicated or Sedated No (0 pts) Impaired Gait No (0 pts) Mobility Assist Device Used No (0 pt) Altered Elimination No (0 pt) Score/Fall Risk Level 0 - 2 = Low Risk. Abuse screen: Denies threats or abuse. Denies injuries from another. Nutritional screening: No deficits noted. Tuberculosis screening: No symptoms or risk factors identified. Assessment: 10:40 General: Appears in no apparent distress. Behavior is calm, cooperative. iw 12:00 Reassessment: Patient appears in no apparent distress at this time. Patient and/or iw family updated on plan of care and expected duration. Pain level reassessed. Patient is alert, oriented x 3, equal unlabored respirations, skin warm/dry/pink. Pain: Complains of pain in all over. Vital Signs: 10:38 BP 106 / 86; Pulse 115; Resp 19; Temp 99.6(O); Pulse Ox 100% ; Weight 95.25 kg; Height iw 5 ft. 2 in. ; 10:38 Body Mass Index 38.41 (95.25 kg, 157.48 cm) iw ED Course: 10:29 Patient arrived in ED. ra3 10:30 Loco Zimmerman DO is Attending Physician. ms3 10:40 Triage completed. iw 10:40 Arm band placed on. iw 10:40 Patient has correct armband on for positive identification. iw 11:20 Chelsea Quiroz, ANNE is Primary Nurse. iw 12:16 George Etienne DO is Referral Physician. ms3 12:36 No provider procedures requiring assistance completed. Patient did not have IV access iw during this emergency room visit. Administered Medications: 11:00 Drug: Ibuprofen PO 600 mg PO once Route: PO; iw Medication: 11:00 VIS not applicable for this client. iw Outcome: 12:17 Discharge ordered by . ms3 12:39 Discharged to home ambulatory, iw 12:39 Condition: good 12:39 Discharge instructions given to patient, Instructed on discharge instructions, follow up and referral plans. medication usage, Demonstrated understanding of instructions, follow-up care, medications, Prescriptions given X 3, 12:40 Patient left the ED. iw Signatures: Chelsea Quiroz RN RN iw Loco Zimmerman DO DO ms3 Christiana Randhawa ra3
--- NOTE | 2024-09-01 12:18 | EDPHYS ---
Physician Documentation [facility] Name: Gill Batista Age: 39 yrs Sex: Female : 1985 Arrival Date: 09/01/2024 Time: : Bed 11 Private MD: ED Physician Loco Zimmerman HPI: 09/01 11:05 This 39 yrs old Female presents to ER via Ambulatory with complaints of Hurts ms3 All Over. 11:05 Gill Batista is a 39-year-old female who presents to the Emergency Department with ms3 bodyaches, cough, sore throat, and headache for the past two days. She reports a fever reaching 101.2F. There is no known exposure to sick individuals. She experiences no nausea or vomiting.. Historical: - Allergies: 10:40 No Known Allergies; iw - Home Meds: 10:40 None [Active]; iw - PMHx: 10:40 None; iw - PSHx: 10:40 None; iw - Immunization history:: Adult Immunizations not up to date. - Infectious Disease History:: Denies. - Social history:: Smoking status: Patient denies any tobacco usage or history of. ROS: 11:05 Cardiovascular: Negative for chest pain, and palpitations. Abdomen/GI: Negative for ms3 abdominal pain, nausea, vomiting, diarrhea, and constipation, 11:05 Constitutional: Positive for body aches, chills, fever, 11:05 Respiratory: Positive for cough, Exam: 11:05 Constitutional: This is a well developed, well nourished patient who is awake, alert, ms3 and in no acute distress. Head/Face: Normocephalic, atraumatic. Respiratory: Lungs have equal breath sounds bilaterally, clear to auscultation and percussion. No rales, rhonchi or wheezes noted. No increased work of breathing, no retractions or nasal flaring. Abdomen/GI: Soft, non-tender, with normal bowel sounds. No distension or tympany. No guarding or rebound. No evidence of tenderness throughout. Skin: Warm, dry with normal turgor. Normal color with no rashes, no lesions, and no evidence of cellulitis. MS/ Extremity: Pulses equal, no cyanosis. Neurovascular intact. Full, normal range of motion. 11:05 Cardiovascular: Rate: tachycardic, Rhythm: regular, Pulses: no pulse deficits are appreciated, Heart sounds: normal, normal S1and S2, Vital Signs: 10:38 BP 106 / 86; Pulse 115; Resp 19; Temp 99.6(O); Pulse Ox 100% ; Weight 95.25 kg; Height iw 5 ft. 2 in. ; 10:38 Body Mass Index 38.41 (95.25 kg, 157.48 cm) iw MDM: 10:35 Medical Screening Exam initiated ms3 11:05 Differential diagnosis: flu, URI, COVID. ms3 13:20 Data reviewed: vital signs, nurses notes, lab test result(s), and as a result, I will ms3 discharge patient. I considered the following discharge prescriptions or medication management in the emergency department Medications were administered in the Emergency Department. See MAR. Counseling: I had a detailed discussion with the patient and/or guardian regarding the historical points, exam findings, and any diagnostic results supporting the discharge/admit diagnosis, lab results, the need for outpatient follow up, to return to the emergency department if symptoms worsen or persist or if there are any questions or concerns that arise at home. Special discussion: I discussed with the patient/guardian in detail that at this point there is no indication for admission to the hospital. It is understood, however, that if the symptoms persist or worsen the patient needs to return immediately for re-evaluation. ED course: Discussed negative flu and COVID results with patient. On reevaluation patient symptoms improved, patient is alert and orient x 4, no apparent distress, nontoxic-appearing, speaking full sentences. Patient to follow-up with Dr. Etienne in 2 to 3 days. Return precautions discussed include worsening symptoms, or any other concerns. Patient given prescription for benzonatate for cough.. 09/01 10:35 Order name: Flu; Complete Time: 11:54 ms3 09/01 10:35 Order name: SARS RAPID; Complete Time: 11:27 ms3 Administered Medications: 11:00 Drug: Ibuprofen PO 600 mg PO once Route: PO; iw Disposition Summary: 09/01/24 12:17 Discharge Ordered Notes: Location: Home ms3 Condition: Stable ms3 Diagnosis - Cough ms3 - Myalgia ms3 - Pain in throat ms3 Followup: ms3 - With: George Etienne DO - When: 2 - 3 days - Reason: Recheck today's complaints Discharge Instructions: - Discharge Summary Sheet ms3 - Sore Throat ms3 - Cough, Adult ms3 Forms: - Medication Reconciliation Form ms3 - Antibiotic Education ms3 - Prescription Opioid Use ms3 - Patient Portal Instructions ms3 - Leadership Thank You Letter ms3 Prescriptions: - benzonatate 200 mg Oral capsule - take 1 capsule ORAL route 3 times per day as needed; 20 capsule; Refills: 0, ms3 Product Selection Permitted Signatures: Dispatcher [employer] Chelsea Gibson RN RN Loco Sullivan DO DO ms3 Corrections: (The following items were deleted from the chart) 10:36 10:36 Influenza Screen (A \T\ B)+BA.LAB.BRZ ordered. EDMS EDMS 10:36 10:36 SARS-COV-2 Antigen Rapid+I.LAB.BRZ ordered. EDMS EDMS
[2024-09-02 16:47] VITALS: BP 106/86; TEMP 99.6; O2SAT 100
== END 2024-09-01 12:40 | disposition home or self-care (01) ==
LOC: ER 10:27
DX: R05.9 Cough, unspecified (principal); M79.10 Myalgia, unspecified site; R07.0 Pain in throat; Z11.52 Encounter for screening for COVID-19
CPT/HCPCS: 36415; 87804; 87811; 99283

== ENCOUNTER 2025-05-23 18:12 | Emergency (ER) | payer SELFPAY ==
[2025-05-23] MEDS ORDERED: METHOCARBAMOL 1,000 MG/10 ML VIAL ONE (18:48)
[2025-05-23] MEDS ORDERED: NA CHLORIDE 0.9% 100 ML ONE (18:48)
[2025-05-23 18:56] LABS: Absolute Lymphocytes (CBC) 3.8 K/uL (0.7-4.9); Hematocrit 37.0 % (36.0-45.0); Hemoglobin 12.4 g/dL (12.0-15.0); MCH 29.0 pg (27.0-35.0); MCHC 33.6 g/dL (32.0-36.0); MCV 86.2 fL (80-100); MPV 9.1 fL (7.6-11.3); Nucleated RBC Absolute Count 0.0 (0-0); Nucleated Red Blood Cells % 0.1 % (0-0); RBC Red Blood Cell Count 4.29 M/uL (3.86-4.86); White Blood Count 11.90 thou/uL (4.3-10.9)
[2025-05-23 19:03] LABS: D-Dimer 0.266 FEUug/mL (0-0.500); PT Prothrombin Time 11.7 SECONDS (10-13.0); Protime INR 1.04
[2025-05-23 19:15] LABS: ALT/SGPT 94 U/L (13-56); AST/SGOT 34 U/L (15-37); Albumin 3.5 g/dL (3.4-5.0); Albumin/Globulin Ratio 0.9 (1.1-1.8); Alkaline Phosphatase 88 U/L (45-117); Anion Gap 7.8 mEq/L (5.0-15.0); BUN Blood Urea Nitrogen 17 mg/dL (7-18); Globulin 3.7 g/dL (2.3-3.5); Glucose Level 135 mg/dL (74-106); Magnesium 2.2 mg/dL (1.6-2.4); NT PRO-BNP 15 pg/mL (<125); Potassium 3.8 mEq/L (3.5-5.1)
--- NOTE | 2025-05-23 19:20 | RAD REPORT ---
Exam:Humerus Right CLINICAL HISTORY: Right arm pain FINDINGS: No fracture seen. No bony lesion noted.
--- NOTE | 2025-05-23 19:21 | RAD REPORT ---
Procedure: Chest Single View HISTORY: Chest pain COMPARISON: 2020 FINDINGS: The lungs appear clear of acute infiltrate. No significant pleural effusion noted. The heart is normal size. IMPRESSION: No acute abnormality is displayed.
[2025-05-23 19:27] LABS: Bilirubin Indirect, Calculated 0.0 mg/dL (0.2-0.8); Troponin High Sensitivity < 3.0 pg/mL (<58.9)
--- NOTE | 2025-05-23 20:36 | RAD REPORT ---
EXAMINATION: UPPER EXTREMITY VENOUS UNILATE CLINICAL INDICATION: Right upper extremity pain TECHNIQUE: Complete bilateral duplex sonography of the right upper extremity veins was performed. The examination included compression for vein patency, color Doppler imaging and flow augmentation in response to distal compression of the internal jugular,, subclavian, axillary, brachial, radial, ulna r, cephalic and basilic veins. .Grayscale, color and spectral analysis performed on all vessels COMPARISON: No prior exam. FINDINGS: The internal jugular, subclavian, axillary, brachial, basilic, cephalic, radial and ulnar veins are g enerally compressible and demonstrate augmentation. Color Doppler demonstrates good flow. IMPRESSION: No evidence of venous thrombus right upper extremity
--- NOTE | 2025-05-23 21:36 | EDPHYS ---
Physician Documentation [facility] Name: Gill Batista Age: 39 yrs Sex: Female : 1985 Arrival Date: 05/23/2025 Time: 18:12 Bed 17 Private MD: ED Physician Tiki Etienne HPI: 05/23 18:33 This 39 yrs old Female presents to ER via Ambulatory with complaints of cp Shoulder Pain, Back Pain. 18:33 The patient or guardian complains of pain. cp 18:33 posterior aspect right shoulder and right upper back. Context: resulted from an unknown cp reason, The patient reports no decreased range of motion. denies specific injury, reports history of right arm DVT. Onset: The symptoms/episode began/occurred 4 week(s) ago. Associated signs and symptoms: Pertinent positives: Numbness in right hand and right arm tingling, radiating pain, Pertinent negatives: chest pain, diaphoresis, neck pain, shortness of breath. Severity of symptoms: in the emergency department the symptoms are unchanged, despite home interventions. Treatment prior to arrival includes: no previous treatment. 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 - Infectious Disease History:: Denies. - Social history:: Smoking status: Patient denies any tobacco usage or history of. ROS: 18:40 Constitutional: Negative for body aches, chills, fever, poor PO intake, cp 18:40 Eyes: Negative for injury, pain, redness, and discharge, cp 18:40 ENT: Negative for drainage from ear(s), ear pain, sore throat, difficulty swallowing, difficulty handling secretions, 18:40 Neck: Negative for stiffness, injury, 18:40 Cardiovascular: Negative for chest pain, palpitations, 18:40 Respiratory: Negative for cough, shortness of breath, wheezing, 18:40 Abdomen/GI: Negative for abdominal pain, vomiting, diarrhea, constipation, 18:40 Back: Positive for pain at rest, pain with movement, of the right trapezius, right scapular area and right subscapular area, 18:40 MS/extremity: Positive for pain, paresthesias, of the right hand and right arm, Negative for injury or acute deformity, 18:40 Skin: Negative for cellulitis, rash, 18:40 Neuro: Negative for altered mental status, headache, weakness, 18:40 All other systems are negative, Exam: 18:40 ECG was reviewed by the Attending Physician. cp 18:45 Constitutional: The patient appears in no acute distress, alert, awake, cp non-diaphoretic, non-toxic, well developed, well nourished, obese, uncomfortable, 18:45 Head/Face: Normocephalic, atraumatic. cp 18:45 Eyes: Periorbital structures: appear normal, Conjunctiva: normal, no exudate, no injection, Sclera: no appreciated abnormality, Lids and lashes: appear normal, bilaterally, 18:45 ENT: External ear(s): are unremarkable, Nose: is normal, Mouth: Lips: moist, Oral mucosa: moist, Posterior pharynx: Airway: no evidence of obstruction, patent, 18:45 Neck: C-spine: vertebral tenderness, is not appreciated, crepitus, is not appreciated, ROM/movement: pain, is not appreciated, limited range of motion, is not appreciated, 18:45 Chest/axilla: Inspection: normal, Palpation: is normal, no crepitus, no tenderness, 18:45 Cardiovascular: Rate: tachycardic, Rhythm: regular, Pulses: Pulses are 2+ in right radial artery and left radial artery. Edema: is not appreciated, JVD: is not appreciated, 18:45 Respiratory: the patient does not display signs of respiratory distress, Respirations: normal, no use of accessory muscles, no retractions, labored breathing, is not present, Breath sounds: are clear throughout, no decreased breath sounds, no stridor, no wheezing, 18:45 Abdomen/GI: Inspection: abdomen appears normal, Palpation: abdomen is soft and non-tender, in all quadrants, 18:45 Back: pain, that is moderate, of the right trapezius, right scapular area and right subscapular area, ROM is normal, vertebral tenderness, is not appreciated, 18:45 Musculoskeletal/extremity: ROM: full active range of motion, in the right shoulder and right elbow and right wrist, the right hand and right arm Sensation intact. 18:45 Skin: no rash present. Vital Signs: 18:24 BP 132 / 89; Pulse 106; Resp 18; Temp 98.2; Pulse Ox 100% ; Weight 99.34 kg; Height 5 me1 ft. 2 in. ; Pain 7/10; 19:03 BP 103 / 51; Pulse 98; Resp 18; Pulse Ox 97% on R/A; rg5 20:45 BP 103 / 59; Pulse 88; Resp 18; Pulse Ox 99% ; Pain 2/10; rg5 21:45 BP 105 / 60; Pulse 90; Resp 18; Pulse Ox 100% ; rg5 18:24 Body Mass Index 40.06 (99.34 kg, 157.48 cm) me1 18:24 Pain Scale: Adult me1 20:45 Pain Scale: Adult rg5 MDM: 18:20 Medical Screening Exam initiated cp 21:35 Data reviewed: vital signs, nurses notes, lab test result(s), EKG, radiologic studies, cp plain films, ultrasound, and as a result, I will discharge patient. 21:35 Differential diagnosis: tendonitis, cervical radiculopathy, DVT. I considered the cp following discharge prescriptions or medication management in the emergency department Medications were administered in the Emergency Department. See MAR. Independent interpretation of the following test(s) in the Emergency Department EKG: See my EKG interpretation above. Counseling: I had a detailed discussion with the patient and/or guardian regarding the historical points, exam findings, and any diagnostic results supporting the discharge/admit diagnosis, lab results, radiology results, the need for outpatient follow up, a family practitioner, to return to the emergency department if symptoms worsen or persist or if there are any questions or concerns that arise at home. Response to treatment: the patient's symptoms have mildly improved after treatment, and as a result, I will discharge patient. 05/23 18:29 Order name: Basic Metabolic Panel; Complete Time: 19:34 cp 05/23 18:29 Order name: CBC with Diff; Complete Time: 19:34 cp 05/23 18:29 Order name: D-Dimer; Complete Time: 19:34 cp 05/23 18:29 Order name: LFT's; Complete Time: 19:34 cp 05/23 18:29 Order name: Magnesium; Complete Time: 19:34 cp 05/23 18:29 Order name: NT PRO-BNP; Complete Time: 19:34 cp 05/23 18:29 Order name: PT-INR; Complete Time: 19:34 cp 05/23 18:29 Order name: Troponin HS; Complete Time: 19:34 cp 05/23 18:29 Order name: XRAY Chest (1 view); Complete Time: 19:34 cp 05/23 18:29 Order name: XRAY Humerus RIGHT; Complete Time: 19:34 cp 05/23 19:34 Order name: UPPER EXTREMITY VENOUS UNILATE; Complete Time: 21:15 EDMS 05/23 21:16 Interpretation: Report reviewed. cp 05/23 18:29 Order name: Cardiac monitoring; Complete Time: 18:35 cp 05/23 18:29 Order name: EKG - Nurse/Tech; Complete Time: 18:35 cp 05/23 18:29 Order name: IV Saline Lock; Complete Time: 18:55 cp 05/23 18:29 Order name: Labs collected and sent; Complete Time: 18:55 cp 05/23 18:29 Order name: O2 Per Protocol; Complete Time: 18:55 cp 05/23 18:29 Order name: O2 Sat Monitoring; Complete Time: 18:55 cp EC:40 Rate is 88 beats/min. Rhythm is regular. WV interval is normal. QRS interval is normal. cp QT interval is normal. T waves are Inverted in lead aVR. Interpreted by me. Reviewed by me. Administered Medications: 18:55 Drug: Methocarbamol IVPB 1 grams IVPB once over 1 hrs; (mix in NS 100 mL) Route: IVPB; rg5 Infused Over: 1 hrs; Site: right antecubital; 19:55 Follow up: IV Status: Completed infusion; IV Intake: 100ml rg5 Disposition Summary: 05/23/25 21:35 Discharge Ordered Notes: Location: Home cp Problem: new cp Symptoms: have improved cp Condition: Stable cp Diagnosis - Dorsalgia, unspecified cp - Pain in right arm cp - Paresthesia of skin cp Followup: cp - With: Private Physician - When: 5 - 6 days - Reason: pain continues Discharge Instructions: - Discharge Summary Sheet cp - Acute Back Pain, Adult cp - Musculoskeletal Pain cp - Paresthesia cp - Back Exercises cp Forms: - Medication Reconciliation Form cp - Antibiotic Education cp - Prescription Opioid Use cp - Patient Portal Instructions cp - Leadership Thank You Letter cp Prescriptions: - Anaprox DS 550 mg Oral Tablet - take 1 tablet ORAL route every 12 hours As needed; 20 tablet; Refills: 0, cp Product Selection Permitted - methocarbamol 750 mg Oral tablet - take 1 tablet ORAL route every 6-8 hours; 30 tablet; Refills: 0, Product cp Selection Permitted Signatures: Dispatcher [employer] EDMS Terrell Benavidez PA-C PA-C cp Eddleman, Michelle, RN RN me1 Harvey Estrada RN RN rg5 Corrections: (The following items were deleted from the chart) 18:29 18:29 BASIC METABOLIC PANEL+C.LAB.BRZ ordered. EDMS EDMS 18:29 18:29 CBC+H.LAB.BRZ ordered. EDMS EDMS 18:29 18:29 D-DIMER+COAG.LAB.BRZ ordered. EDMS EDMS 18:29 18:29 HEPATIC FUNCTION+C.LAB.BRZ ordered. EDMS EDMS 18:29 18:29 MAGNESIUM+C.LAB.BRZ ordered. EDMS EDMS 18:29 18:29 PROBNP+C.LAB.BRZ ordered. EDMS EDMS 18:29 18:29 PROTIME (+INR)+COAG.LAB.BRZ ordered. EDMS EDMS 18:29 18:29 Troponin High Sensitivity+C.LAB.BRZ ordered. EDMS EDMS 18:29 18:29 Test, Urine+UC.LAB.BRZ ordered. EDMS EDMS 18:29 18:29 UA Rfx Vladimir Cult if indicated+U.LAB.BRZ ordered. EDMS EDMS 18:29 18:29 Chest Single View+RAD.RAD.BRZ ordered. EDMS EDMS 18:38 18:38 Extremity Venous Uni Ltd+US.RAD.BRZ ordered. EDMS EDMS
--- NOTE | 2025-05-23 21:36 | ER ---
Nurse's Notes [facility] Name: Gill Batista Age: 39 yrs Sex: Female : 1985 Arrival Date: 05/23/2025 Time: 18:12 Bed 17 Private MD: Diagnosis: Dorsalgia, unspecified;Pain in right arm;Paresthesia of skin Presentation: 05/23 18:24 Chief complaint: Patient states: c/o pain and tingling to R upper back, R upper chest, me1 R arm and R 3rd, 4th and 5th digit for about 4 weeks. HX of DVT to right arm about 2 years ago and reports this is how she felt. Coronavirus screen: At this time, the client does not indicate any symptoms associated with coronavirus-19. Ebola Screen: No symptoms or risks identified at this time. Initial Sepsis Screen: Does the patient meet any 2 criteria? HR > 90 bpm. Does the patient have a suspected source of infection? No. Patient's initial sepsis screen is negative. Risk Assessment: Do you want to hurt yourself or someone else? Patient reports no desire to harm self or others. Onset of symptoms is unknown. 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 - Infectious Disease History:: Denies. - Social history:: Smoking status: Patient denies any tobacco usage or history of. Screenin:30 [facility] ED Fall Risk Assessment (Adult) History of falling in the last 3 months, rg5 including since admission No falls in past 3 months (0 pts) Confusion or Disorientation No (0 pts) Intoxicated or Sedated No (0 pts) Impaired Gait No (0 pts) Mobility Assist Device Used No (0 pt) Altered Elimination No (0 pt) Score/Fall Risk Level 0 - 2 = Low Risk Oriented to surroundings, Maintained a safe environment. Abuse screen: Denies threats or abuse. Denies injuries from another. Nutritional screening: No deficits noted. Tuberculosis screening: No symptoms or risk factors identified. Assessment: 18:30 General: Appears in no apparent distress. comfortable, Behavior is calm, cooperative, rg5 appropriate for age. Pain: Complains of pain in right arm Pain currently is 7 out of 10 on a pain scale. Quality of pain is described as aching. Neuro: Level of Consciousness is awake, alert, obeys commands, Oriented to person, place, time, situation. Neuro:. Cardiovascular: Denies chest pain, Patient's skin is warm and dry. Respiratory: Airway is patent Trachea midline Respiratory effort is even, unlabored, Respiratory pattern is regular, symmetrical. GI: Abdomen is round non-distended. : No signs and/or symptoms were reported regarding the genitourinary system. EENT: No signs and/or symptoms were reported regarding the EENT system. Derm: Skin is intact, Skin is dry, Skin is normal, Skin temperature is warm. Musculoskeletal: Circulation, motion, and sensation intact. Range of motion: intact in all extremities. 19:30 Reassessment: Patient and/or family updated on plan of care and expected duration. Pain rg5 level reassessed. Patient is alert, oriented x 3, equal unlabored respirations, skin warm/dry/pink. 20:45 Reassessment: Patient states feeling better. Patient states symptoms have improved. rg5 21:50 Reassessment: Patient and/or family updated on plan of care and expected duration. Pain rg5 level reassessed. Patient is alert, oriented x 3, equal unlabored respirations, skin warm/dry/pink. Patient states feeling better. Patient states symptoms have improved. Vital Signs: 18:24 BP 132 / 89; Pulse 106; Resp 18; Temp 98.2; Pulse Ox 100% ; Weight 99.34 kg; Height 5 me1 ft. 2 in. ; Pain 7/10; 19:03 BP 103 / 51; Pulse 98; Resp 18; Pulse Ox 97% on R/A; rg5 20:45 BP 103 / 59; Pulse 88; Resp 18; Pulse Ox 99% ; Pain 2/10; rg5 21:45 BP 105 / 60; Pulse 90; Resp 18; Pulse Ox 100% ; rg5 18:24 Body Mass Index 40.06 (99.34 kg, 157.48 cm) me1 18:24 Pain Scale: Adult me1 20:45 Pain Scale: Adult rg5 ED Course: 18:14 Patient arrived in ED. ts1 18:19 Terrell Benavidez PA-C is PHCP. cp 18:19 Tiki Etienne MD is Attending Physician. cp 18:26 Triage completed. me1 18:26 Arm band placed on Patient placed in an exam room. me1 18:30 Patient has correct armband on for positive identification. Bed in low position. Call rg5 light in reach. Side rails up X 1. Door closed. Noise minimized. Warm blanket given. 18:30 No provider procedures requiring assistance completed. Inserted saline lock: 20 gauge rg5 in right antecubital area, using aseptic technique. Blood collected. Flushed with 10 mL NS. Patient maintains SpO2 saturation greater than 95% on room air. 18:34 Harvey Estrada, ANNE is Primary Nurse. rg5 19:02 XRAY Chest (1 view) In Process Unspecified. EDMS 19:02 XRAY Humerus RIGHT In Process Unspecified. EDMS 20:18 UPPER EXTREMITY VENOUS UNILATE In Process Unspecified. EDMS 22:20 IV discontinued, bleeding controlled, No redness/swelling at site. Pressure dressing rg5 applied. Administered Medications: 18:55 Drug: Methocarbamol IVPB 1 grams IVPB once over 1 hrs; (mix in NS 100 mL) Route: IVPB; rg5 Infused Over: 1 hrs; Site: right antecubital; 19:55 Follow up: IV Status: Completed infusion; IV Intake: 100ml rg5 Medication: 18:30 VIS not applicable for this client. rg5 Intake: 19:55 IV: 100ml; Total: 100ml. rg5 Outcome: 21:35 Discharge ordered by . cp 22:19 Discharged to home ambulatory, rg5 22:19 Condition: stable 22:19 Discharge instructions given to patient, Instructed on discharge instructions, Demonstrated understanding of instructions, follow-up care, Prescriptions given X 2, 22:20 Patient left the ED. rg5 Signatures: Dispatcher [employer] EDMS Terrell Benavidez PA-C PA-C cp Simpson, Tanya, NINFA OCASIO ts1 Meghann Doshi, RN RN me1 Harvey Estrada, ANNE RN rg5
[2025-05-23 22:24] VITALS: TEMP 98.2
[2025-05-23 22:29] VITALS: BP 105/60; O2SAT 100
== END 2025-05-23 22:20 | disposition home or self-care (01) ==
LOC: ER 18:12
DX: M54.9 Dorsalgia, unspecified (principal); M25.511 Pain in right shoulder; R20.2 Paresthesia of skin
CPT/HCPCS: 36415; 71045; 80048; 80076; 83735; 83880; 84484; 85025; 85379; 85610; 93005; 93971; 96365; 99284; J2800